=== PATIENT | female | born 1935 | race Caucasian/White ===

== ENCOUNTER → 2017-05-06 10:44 | Outpatient (CLI) | payer MEDICARE, OTHER, SELFPAY ==
[2017-05-06 11:39] LABS: INR 3.36 (0.9-1.1); Prothrombin Time 36.7 seconds (9.4-11.8)
[2017-05-06 13:08] LABS: Anion Gap 15.6 mEq/L (5-15); Blood Urea Nitrogen 22 mg/dL (7-18); Carbon Dioxide 19 mmol/L (21.0-32.0); Chloride 110 mmol/L (98-107); Creatinine,Serum 0.88 mg/dL (0.55-1.02); Estimated Glomerular Filt Rate 62 ml/min (>60); GFR (African American) 75 ML/MIN (>60); Glucose 84 mg/dL (74-106); Potassium 4.6 mmoL/L (3.5-5.1); Sodium 140 mmol/L (136-145)
== END ==
PROVIDERS: PCP Family Medicine; Visit Provider Family Medicine
DX: Z79.01 Long term (current) use of anticoagulants (principal); E87.6 Hypokalemia; Z51.81 Encounter for therapeutic drug level monitoring
CPT/HCPCS: 36415; 80048; 85610

== ENCOUNTER 2017-05-11 01:20 | Emergency (ER) | payer MEDICARE, OTHER, SELFPAY ==
[2017-05-11 01:27] VITALS: BP 145/69; PULSE 68; RESP 16; TEMP 36.4; O2SAT 100; BMI 22.3
--- NOTE | 2017-05-11 01:51 | CT_ITS ---
CT head/brain wo con HISTORY: ITS.REASON: DIZZINESS ORDERING PHYSICIAN: Ronan Alvarado MD PATIENT AGE: 81 years COMPARISON: None TECHNIQUE: Axial images obtained without contrast. Brain and bone windows reviewed. FINDINGS: No midline shift, mass effect, intracranial hemorrhage, hydrocephalus, or extra-axial fluid collection is evident. There is generalized atrophy with chronic microangiopathic changes There is a well-circumscribed macrolobulated or lucent lesion in the left vertex of the skull measuring 2 cm similar to the previous exam unchanged dating back to 09/14/2009 consistent with a benign lesion. No mastoid effusion. No sinus air-fluid levels.. IMPRESSION: 1. No acute finding. 2. Atrophy with chronic ischemic change.
[2017-05-11 02:09] LABS: Basophils # 0.1 K/mm3 (0-0.2); Basophils % 0.8 % (0.1-2.0); Eosinophils # 0.2 K/mm3 (0.0-0.4); Eosinophils % 2.9 % (0.1-12.0); Hematocrit 36.3 % (37.0-47.0); Hemoglobin 11.4 g/dL (12.2-16.2); Lymphocytes % 27.2 K/mm3 (10-50); Mean Corpuscular HGB Conc 31.4 g/dL (31.8-35.4); Mean Corpuscular Hemoglobin 29.2 pg (27.0-31.2); Mean Corpuscular Volume 92.8 fl (81-99); Mean Platelet Volume 7.7 fl (7.4-10.4); Monocytes # 0.6 K/mm3 (0.1-1.0); Monocytes % 8.1 % (1.7-9.3); Neutrophils # 4.5 K/mm3 (1.8-7.8); Platelet Count 229 K/mm3 (142-424); Red Blood Count 3.91 M/mm3 (4.20-5.40); Red Cell Distribution Width 13.7 % (11.5-17.5); White Blood Count 7.4 K/mm3 (4.8-10.8)
[2017-05-11 02:28] LABS: Alanine Aminotransferase 15 U/L (12-78); Albumin/Globulin Ratio 0.9 (1.1-1.8); Alkaline Phosphatase 68 U/L (46-116); Anion Gap 10.9 mEq/L (5-15); Aspartate Amino Transferase 14 U/L (15-37); Bilirubin,Total 0.6 mg/dL (0.2-1.0); Blood Urea Nitrogen 17 mg/dL (7-18); Calcium 8.5 mg/dL (8.5-10.1); Carbon Dioxide 20 mmol/L (21.0-32.0); Chloride 115 mmol/L (98-107); Creatinine Clearance Estimated 41 mL/min (0-300); Creatinine,Serum 0.91 mg/dL (0.55-1.02); Estimated Glomerular Filt Rate 59 ml/min (>60); GFR (African American) 72 ML/MIN (>60); Globulin 3.4 gm/dl (1.3-3.2); Glucose 92 mg/dL (74-106); Potassium 3.9 mmoL/L (3.5-5.1); Sodium 142 mmol/L (136-145); Total Protein,Serum 6.4 gm/dL (6.4-8.2)
[2017-05-11 02:57] LABS: Microscopic, Urine URINE MICROSCOPIC (MICROSCOPIC)
[2017-05-11 02:58] LABS: Appearance,Urine CLEAR (Clear); Bilirubin,Urine Negative (Negative); Blood, Urine Negative (Negative); Color,Urine YELLOW (Yellow); Glucose,Urine (UA) Negative (Negative); Ketones,Urine Negative (Negative); Leukocyte Esterase,Urine TRACE (Negative); Nitrate,Urine Negative (Negative); Protein,Urine Negative (Negative); Urobilinogen,Urine 0.2 EU/dl (0.2)
[2017-05-11 03:00] LABS: Activated Partial Thrombo Time 41.1 seconds (23.6-34.0)
--- NOTE | 2017-05-11 03:00 | PC.NURSE ---
RN ADVISED OF PT, PTT INR CRITICAL RESULTS.
[2017-05-11 03:01] LABS: INR 4.53 (0.9-1.1); Prothrombin Time 49.7 seconds (9.4-11.8)
--- NOTE | 2017-05-11 03:03 | PC.NURSE ---
NOTIFIED OF PT/INR RESULTS
[2017-05-11 03:11] LABS: Creatine Kinase 38 U/L (26-192); Troponin I 0.05 ng/ml (0.00-0.06)
[2017-05-11 03:21] LABS: CKMB Relative Index 1.3 U/L (0-4.0); Creatine Kinase MB < 0.5 mg/ml (0.0-3.6)
--- NOTE | 2017-05-11 04:01 | [facility].EDDIZZ ---
ED Disposition Clinical Impression: Dizziness, nonspecific, Prolonged pt (prothrombin time) Disposition: Home, Self-Care Condition on Discharge: Good Instructions: Dizziness, Nonvertigo Additional Instructions: hold coumadin today and keep appt friday with dr newell Referrals: Vladislav Newlel MD [Primary Care Provider] - - Critical Care Critical Care Time: No Attestation: On 05/11/17, the high probability of a clinically significant, sudden or life threatening deterioration of the following system(s) required my full and direct attention, intervention and personal management. The time I documented below is in addition to time spent performing reported procedures but includes the following listed in this critical care notation. Medical Decision Making - Medical Records Medical records reviewed: Yes: I reviewed the patient's medical records. Vital Signs: 05/11/17 01:27 Temperature 97.6 F Temperature Source Oral Pulse Rate [Right Radial] 68 Respiratory Rate 16 Blood Pressure [Right Arm] 145/69 Blood Pressure Mean [Right Arm] 94 Blood Pressure Source [Right Arm] Automatic Cuff Blood Pressure Position [Right Arm] Sitting 02 Sat by Pulse Oximetry 100 Oxygen Delivery Method Room Air - Lab Data Lab results reviewed: Yes: I reviewed the patient's lab results. Lab Results 05/11/17 01:55: WBC 7.4, RBC 3.91 L, Hgb 11.4 L, Hct 36.3 L, MCV 92.8, MCH 29.2, MCHC 31.4 L, RDW 13.7, Plt Count 229, MPV 7.7, Neut % (Auto) 61.0, Lymph % (Auto) 27.2, [place] % (Auto) 8.1, Eos % (Auto) 2.9, Baso % (Auto) 0.8, Neut # (Auto) 4.5, Lymph # (Auto) 2.0, [place] # (Auto) 0.6, Eos # (Auto) 0.2, Baso # (Auto) 0.1 05/11/17 01:55: Sodium 142, Potassium 3.9, Chloride 115 H, Carbon Dioxide 20 L, Anion Gap 10.9, BUN 17, Creatinine 0.91, Estimated Creat Clear 41, Estimated GFR 59, Est GFR ( Amer) 72, Glucose 92, Calcium 8.5, Total Bilirubin 0.6, AST 14 L, ALT 15, Alkaline Phosphatase 68, Total Protein 6.4, Albumin 3.0 L, Globulin 3.4 H, Albumin/Globulin Ratio 0.9 L 05/11/17 01:55: Total Creatine Kinase 38, CK-MB (CK-2) < 0.5, CK-MB (CK-2) Rel Index 1.3, Troponin I 0.05 05/11/17 01:55: PT 49.7 H, INR 4.53 H, APTT 41.1 H 05/11/17 02:55: Urine Color Yellow, Urine Appearance Clear, Urine pH 7.0, Ur Specific [place] 1.010, Urine Protein Negative, Urine Glucose (UA) Negative, Urine Ketones Negative, Urine Blood Negative, Urine Nitrate Negative, Urine Bilirubin Negative, Urine Urobilinogen 0.2, Ur Leukocyte Esterase Trace, Urine WBC 3-5, Ur Squamous Epith Cells 3-5 Result diagrams: 05/11/17 01:55 05/11/17 01:55 Orders (Tests/Meds): ORDERS Category Date Time Status CT head/brain wo con Stat Cat Scan 05/11/17 01:51 Taken - CT Data CT Scan: Head Time Received: 04:[address] Reviewed: Yes: I have viewed the radiologist's interpretation Preliminary Findings: Normal/NAD - ECG Data Tracing #1 I reviewed this ECG and interpreted as documented below: Ischemic changes: non-specific ST-T wave changes - Francis Inquiry Pt receiving controlled substance: No Dizzy HPI - General Chief Complaint: Dizziness Stated Complaint: Dizziness;Light Headed Time Seen by Provider: 05/11/17 04:01 Mode of Arrival: Wheelchair Source of Information: Patient, Significant Other, Medical Record Limitations: No Limitations Description of Symptoms (Recalled from ER Triage Doc. by RN): Pt reports she stood up to go to the bathroom and got dizzy. Pt currently report burning eyes and pressure. - History of Present Illness HPI Narrative: pt with episode of dizzyness this am as she went to bathroom with no chest pain or syncope and has had episodes in past - better now MD complaint: dizziness Onset (ago): hour(s) Timing: sudden onset, now resolved Description: room spinning History of similar episodes: Yes History of trauma: No Severity: moderate Exacerbating factors: position - Related Data Home Medications Medication Instructions Re
--- NOTE | 2017-05-11 04:16 | ED_ITS ---
ED Disposition Clinical Impression: Dizziness, nonspecific, Prolonged pt (prothrombin time) Disposition: Home, Self-Care Condition on Discharge: Good Instructions: Dizziness, Nonvertigo Additional Instructions: hold coumadin today and keep appt friday with dr newell Referrals: Vladislav Newell MD [Primary Care Provider] - - Critical Care Critical Care Time: No Attestation: On 05/11/17, the high probability of a clinically significant, sudden or life threatening deterioration of the following system(s) required my full and direct attention, intervention and personal management. The time I documented below is in addition to time spent performing reported procedures but includes the following listed in this critical care notation. Medical Decision Making - Medical Records Medical records reviewed: Yes: I reviewed the patient's medical records. Vital Signs: 05/11/17 01:27 Temperature 97.6 F Temperature Source Oral Pulse Rate [Right Radial] 68 Respiratory Rate 16 Blood Pressure [Right Arm] 145/69 Blood Pressure Mean [Right Arm] 94 Blood Pressure Source [Right Arm] Automatic Cuff Blood Pressure Position [Right Arm] Sitting 02 Sat by Pulse Oximetry 100 Oxygen Delivery Method Room Air - Lab Data Lab results reviewed: Yes: I reviewed the patient's lab results. Lab Results 05/11/17 01:55: WBC 7.4, RBC 3.91 L, Hgb 11.4 L, Hct 36.3 L, MCV 92.8, MCH 29.2 , MCHC 31.4 L, RDW 13.7, Plt Count 229, MPV 7.7, Neut % (Auto) 61.0, Lymph % ( Auto) 27.2, [place] % (Auto) 8.1, Eos % (Auto) 2.9, Baso % (Auto) 0.8, Neut # (Auto ) 4.5, Lymph # (Auto) 2.0, [place] # (Auto) 0.6, Eos # (Auto) 0.2, Baso # (Auto) 0.1 05/11/17 01:55: Sodium 142, Potassium 3.9, Chloride 115 H, Carbon Dioxide 20 L, Anion Gap 10.9, BUN 17, Creatinine 0.91, Estimated Creat Clear 41, Estimated GFR 59, Est GFR ( Amer) 72, Glucose 92, Calcium 8.5, Total Bilirubin 0.6 , AST 14 L, ALT 15, Alkaline Phosphatase 68, Total Protein 6.4, Albumin 3.0 L, Globulin 3.4 H, Albumin/Globulin Ratio 0.9 L 05/11/17 01:55: Total Creatine Kinase 38, CK-MB (CK-2) < 0.5, CK-MB (CK-2) Rel Index 1.3, Troponin I 0.05 05/11/17 01:55: PT 49.7 H, INR 4.53 H, APTT 41.1 H 05/11/17 02:55: Urine Color Yellow, Urine Appearance Clear, Urine pH 7.0, Ur Specific [place] 1.010, Urine Protein Negative, Urine Glucose (UA) Negative, Urine Ketones Negative, Urine Blood Negative, Urine Nitrate Negative, Urine Bilirubin Negative, Urine Urobilinogen 0.2, Ur Leukocyte Esterase Trace, Urine WBC 3-5, Ur Squamous Epith Cells 3-5 Result diagrams: 05/11/17 01:55 05/11/17 01:55 Orders (Tests/Meds): ORDERS Category Date Time Status CT head/brain wo con Stat Cat Scan 05/11/17 01:51 Taken - CT Data CT Scan: Head Time Received: 04:[address] Reviewed: Yes: I have viewed the radiologist's interpretation Preliminary Findings: Normal/NAD - ECG Data Tracing #1 I reviewed this ECG and interpreted as documented below: Ischemic changes: non-specific ST-T wave changes - Francis Inquiry Pt receiving controlled substance: No Dizzy HPI - General Chief Complaint: Dizziness Stated Complaint: Dizziness;Light Headed Time Seen by Provider: 05/11/17 04:01 Mode of Arrival: Wheelchair Source of Information: Patient, Significant Other, Medical Record Limitations: No Limitations Description of Symptoms (Recalled from ER Triage Doc. by RN): Pt reports she stood up to go to the
== END 2017-05-11 04:33 | disposition home or self-care (01) ==
PROVIDERS: Emergency Provider Emergency Medicine; PCP Family Medicine
DX: R42 Dizziness and giddiness (principal); R79.1 Abnormal coagulation profile; Z79.01 Long term (current) use of anticoagulants; Z79.899 Other long term (current) drug therapy
CPT/HCPCS: 70450; 80053; 81001; 82550; 82553; 84484; 85025; 85610; 85730; 93005; 93041; 99282

== ENCOUNTER → 2017-08-05 10:36 | Outpatient (CLI) | payer MEDICARE, OTHER, SELFPAY ==
--- NOTE | 2017-08-05 11:07 | CT_ITS ---
CT abdomen pelvis w con CLINICAL INDICATION: ITS.REASON: EPIGASTRIC PAIN SWELLING,PELVIC SWELLING MASS ORDERING PHYSICIAN: Vladislav Moise MD PATIENT AGE: 81 years COMPARISON: 02/15/2017 TECHNIQUE: Axial images obtained with sagittal and coronal reformats. All CT scans at the facility use one or more dose reduction, viz: automated exposure control; ma/kV adjustment per patient size (including targeted exams where dose is matched to indication; i.e. head); or iterative reconstruction technique. PROCEDURE: Oral Contrast: Redicat IV Contrast: 50 mL's of Isovue-370 performed in conjunction with the chest CT. FINDINGS: There is mild dilatation of the intrahepatic biliary radicles. No radio opaque gallstones are evident. A faint isodense is present involving the right hepatic lobe medially at 4 mm unchanged. Spleen and adrenal glands are unremarkable. No pancreatic mass or pancreatitis evident.. There is moderate severe right hydronephrosis with dilatation of the right renal pelvis. The right ureter is not dilated. This is consistent with UPJ obstruction. The left kidney has an unremarkable appearance. There is a moderate amount retained colonic feces. Post hysterectomy changes are present. No evidence of diverticulitis or appendicitis. There is diverticulosis of the sigmoid and descending colon. No acute bony anomalies. There are degenerative changes in the lumbar spine. IMPRESSION: 1. 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 No obstructing stones are evident. No obvious renal or proximal ureteral mass. 2. Mild dilatation of the intrahepatic biliary radicles. Questionable clinical significance 3. Constipation with diverticulosis
--- NOTE | 2017-08-05 11:07 | CT_ITS ---
CT chest wo/w con HISTORY: Atypical chest pain, follow-up pulmonary nodule ITS.REASON: ATYPICAL CHEST PAIN LUNG NODULE ORDERING PHYSICIAN: Vladislav Moise MD PATIENT AGE: 81 years Technique: Axial images obtained without and with contrast.. Sagittal and coronal reformatted images are also generated and reviewed. All CT scans at the facility use one or more dose reduction, viz: automated exposure control; ma/kV adjustment per patient size (including targeted exams where dose is matched to indication; i.e. head); or iterative reconstruction technique. CONTRAST: 75ml Isovue 370 I.V. COMPARISON: 07/26/2017 FINDINGS: Left lobe of the thyroid gland is slightly enlarged with isodensity pole suggesting a 1 cm nodule. No evidence of aortic aneurysm or dissection. Atherosclerotic calcification involves coronary arteries and the aorta. No central pulmonary embolus evident. No mediastinal or hilar mass. Very small amount contrast present in the distal esophagus and may be related to reflux. A 4 mm nodules present in the central aspect of the right upper lobe unchanged. A well-circumscribed 9 mm subpleural nodular density is once again noted in the right lung base medially. This does not demonstrate any significant enhancement and is unchanged from 07/26/2017. No new nodules are evident. No lobar consolidation or collapse. No acute bony anomalies IMPRESSION: 1. Overall stable CT appearance of the chest compared to 07/26/2017 with no acute finding evident. 2. No evidence of aortic aneurysm or dissection or central pulmonary embolus. 3. No change 4 mm right upper lobe and 9 mm right lower lobe nodule.
== END ==
PROVIDERS: PCP Family Medicine; Visit Provider Family Medicine
DX: R91.1 Solitary pulmonary nodule (principal); R07.89 Other chest pain; R10.13 Epigastric pain; R19.06 Epigastric swelling, mass or lump
CPT/HCPCS: 71270; 74177; Q9967

== ENCOUNTER → 2017-09-29 14:05 | Outpatient (CLI) | payer MEDICARE, OTHER, SELFPAY ==
--- NOTE | 2017-09-29 14:19 | XR_ITS ---
EXAM: XR thoracic spine 3V HISTORY: ITS.REASON: THORACIC BACK PAIN Comparison: 09/25/2017 FINDINGS: Normal alignment. There is mild lower thoracic curvature convex left. No acute fracture or dislocation is evident. There are mild degenerative changes in the midthoracic spine with minimal intraosseous osteophytes. No lytic or blastic change. IMPRESSION: No acute finding. Mild degenerative changes of the midthoracic spine with mild thoracic scoliosis convex left
== END ==
PROVIDERS: PCP Nurse Practitioner Family; Visit Provider Nurse Practitioner Family
DX: M54.6 Pain in thoracic spine (principal)
CPT/HCPCS: 72072

== ENCOUNTER 2017-10-14 17:14 | Observation (INO) ==
[2017-10-14 17:32] LABS: Basophils % 0.4 % (0.1-2.0); Eosinophils # 0.1 K/mm3 (0.0-0.4); Eosinophils % 0.9 % (0.1-12.0); Hematocrit 39.1 % (37.0-47.0); Hemoglobin 12.1 g/dL (12.2-16.2); Lymphocytes # 1.6 K/mm3 (0.7-4.5); Lymphocytes % 13.7 K/mm3 (10-50); Mean Corpuscular HGB Conc 30.9 g/dL (31.8-35.4); Mean Corpuscular Hemoglobin 27.3 pg (27.0-31.2); Mean Corpuscular Volume 88.3 fl (81-99); Mean Platelet Volume 8.7 fl (7.4-10.4); Monocytes # 0.7 K/mm3 (0.1-1.0); Monocytes % 5.6 % (1.7-9.3); Neutrophils # 9.4 K/mm3 (1.8-7.8); Neutrophils % 79.4 % (37.0-80.0); Platelet Count 418 K/mm3 (142-424); Red Blood Count 4.43 M/mm3 (4.20-5.40); Red Cell Distribution Width 14.9 % (11.5-17.5); White Blood Count 11.8 K/mm3 (4.8-10.8)
[2017-10-14 17:42] LABS: Albumin/Globulin Ratio 0.8 (1.1-1.8); Anion Gap 20.3 mEq/L (5-15); Bilirubin,Total 0.5 mg/dL (0.2-1.0); Calcium 8.6 mg/dL (8.5-10.1); Globulin 3.7 gm/dl (1.3-3.2); Potassium 4.3 mmoL/L (3.5-5.1); Total Protein,Serum 6.7 gm/dL (6.4-8.2)
--- NOTE | 2017-10-14 17:46 | Emergency Department Note ---
ED Disposition Clinical Impression: Dehydration Acute renal failure Qualifiers: Acute renal failure type: unspecified Qualified Code(s): N17.9 - Acute kidney failure, unspecified Abdominal pain Qualifiers: Abdominal location: unspecified location Qualified Code(s): R10.9 - Unspecified abdominal pain Nausea & vomiting Qualifiers: Vomiting type: unspecified Vomiting Intractability: unspecified Qualified Code( s): R11.2 - Nausea with vomiting, unspecified Disposition: Admitted As Inpatient Condition on Discharge: Good Referrals: Mark Anthony Sotelo MD [Primary Care Provider] - Time of Disposition: 20:19 - Critical Care Critical Care Time: No Attestation: On 10/14/17, the high probability of a clinically significant, sudden or life threatening deterioration of the following system(s) required my full and direct attention, intervention and personal management. The time I documented below is in addition to time spent performing reported procedures but includes the following listed in this critical care notation. Medical Decision Making - Medical Records Medical records reviewed: Yes: I reviewed the patient's medical records. - Francis Inquiry Pt receiving controlled substance: No Vital Signs: 10/14/17 17:15 10/14/17 18:15 Temperature 97.7 F 98.2 F Temperature Source Oral Oral Pulse Rate [Right Radial] 104 H 104 H Respiratory Rate 16 18 Blood Pressure [Right Arm] 107/39 151/87 Blood Pressure Mean [Right Arm] 61 108 Blood Pressure Source [Right Arm] Automatic Cuff Automatic Cuff Blood Pressure Position [Right Arm] Supine Supine 02 Sat by Pulse Oximetry 98 98 Oxygen Delivery Method Room Air - Lab Data Lab results reviewed: Yes: I reviewed the patient's lab results. Lab Results 10/14/17 17:25: WBC 11.8 H, RBC 4.43, Hgb 12.1 L, Hct 39.1, MCV 88.3, MCH 27.3, MCHC 30.9 L, RDW 14.9, Plt Count 418, MPV 8.7, Neut % (Auto) 79.4, Lymph % (Auto ) 13.7, [place] % (Auto) 5.6, Eos % (Auto) 0.9, Baso % (Auto) 0.4, Neut # (Auto) 9.4 H, Lymph # (Auto) 1.6, [place] # (Auto) 0.7, Eos # (Auto) 0.1, Baso # (Auto) 0.0 10/14/17 17:25: Sodium 136, Potassium 4.3, Chloride 104, Carbon Dioxide 16 L, Anion Gap 20.3 H, BUN 53 H, Creatinine 1.09 H, Estimated Creat Clear 32, Estimated GFR 48 L, Est GFR ( Amer) 58 L, Glucose 115 H, Calcium 8.6, Total Bilirubin 0.5, AST 11 L, ALT 11 L, Alkaline Phosphatase 60, Total Protein 6.7, Albumin 3.0 L, Globulin 3.7 H, Albumin/Globulin Ratio 0.8 L, Amylase 47, Lipase 308 Result diagrams: 10/14/17 17:25 10/14/17 17:25 Orders (Tests/Meds): ED MEDICATIONS Discontinued Medications Generic Name Dose Route Start Last Admin Trade Name Freq PRN Reason Stop Dose Admin Iopamidol 75 ml 10/14/17 19:18 10/14/17 19:19 [id number]; 75ml Vial IV 10/14/17 19:19 75 ml ONCE ONE Administration Sodium Chloride 10 ml 10/14/17 19:18 10/14/17 19:19 Rad-Saline Flush 10ml Syringe IV 10/14/17 19:19 10 ml ONCE ONE Administration ORDERS Category Date Time Status CT abdomen pelvis w con Stat Cat Scan 10/14/17 17:48 Taken - Physician Consults Physician Consulted: shaw Alvarado for Dr Moies Time: 20:15 Reason -: Admission, Pt condition Comment/Response: Advised of patient presentation findings, agreeable with admission. CT scan of the abdomen and pelvis is pending. Abdominal Pain HPI - General Chief Complaint: Abdominal Pain Stated Complaint: abd pain Time Seen by Provider: 10/14/17 17:45 Mode of Arrival: EMS Limitations: Physical Limitations Description of Symptoms (Recalled from ER Triage Doc. by RN): Ongoing abd pain for weeks and n/v. weakness. - History of Present Illness HPI narrative: Patient is a 82-year-old male patient brought into the emergency room by family with abdominal pain, nausea vomiting, for the past 2-3 weeks. Patient is a very vague historian, being known with diagnosis of dementia. Family member (daughter) at bedside. MD complaint: abdominal pain Onset (ago): week(s) (2) Consistency: intermittent Location: diffuse Severity: mild Severity scale (1-10): 2 Quality: aching Radiation: none Migration to: no migration Relieving factors: nothing Exacerbating factors: nothing Associated symptoms: nausea, vomiting - Related Data Home Medications Medication Instructions Recorded Confirmed No Known Home Medications 09/18/17 10/14/17 Allergies Allergy/AdvReac Type Severity Reaction Status Date / Time pravastatin [PRAVASTATIN] Allergy Intermediate I-RASH Verified 10/14/17 17:20 [facility] History I have reviewed the patient's past medical history: Yes Medical History: Denies:: Cancer, Diabetes Mellitus Type 1, Diabetes Mellitus Type 2, Internal Pacemaker, MRSA Other Surgeries: No: Pacemaker Amputation: No Fractures: No - Social History Smoking Status: Former smoker Tobacco Type: cigarettes Alcohol Intake: never Alcohol Intake Frequency:: holidays/special occasions only - Psychiatric History Expresses thoughts of harming self/others: None Suicide Plan Description: No Plan ROS Obtained: Yes All systems reviewed & no additional complaints, Yes Systems reviewed as appropriate & no additional complaints - Gastrointestinal Gastrointestingal: Reports: system reviewed and no additional complaints, except as docu, as per HPI, nausea, vomiting Physical Exam - General General appearance: alert, in distress - Head Head exam: atraumatic, normocephalic, normal inspection - Neck Neck exam: Present: normal inspection, full ROM, trachea midline. Absent: meningismus, lymphadenopathy - Chest Chest inspection: Present: normal inspection, symmetric chest wall rise. Absent : tenderness - Respiratory Respiratory exam: Present: normal lung sounds bilaterally. Absent: respiratory distress - Cardiovascular Cardiovascular exam: Present: regular rate, normal rhythm. Absent: JVD - Abdominal Exam Abdominal exam: Present: soft, normal bowel sounds. Absent: distention, tenderness, guarding - Extremities Exam Extremities exam: Present: normal inspection, full ROM, normal capillary refill. Absent: calf tenderness - Back Exam Back exam: Present: normal inspection. Absent: tenderness - Neurological Exam Neurological exam: Present: alert, CN II-XII intact, other (Confused, demented) - Psychiatric Psychiatric exam: Present: depressed, flat affect - Skin Skin exam: Present: warm, dry, intact, normal color
[2017-10-15 01:03] LABS: ABG Base Excess -15.6 mmol/L (-2.4-2.3); ABG HCO3 9.5 mmhg (22.0-26.0); ABG Oxygen Saturation 98 % (90-100); ABG PH 7.38 mmol/L (7.35-7.45)
[2017-10-15 01:05] LABS: Allen's Test Non Applicable; Oxygen 1.5 LPM %
[2017-10-15 01:06] LABS: ABG PCO2 16.2 mmhg (35.0-45.0)
[2017-10-15 01:30] LABS: Basophils % 0.2 % (0.1-2.0); Eosinophils # 0.1 K/mm3 (0.0-0.4); Eosinophils % 0.3 % (0.1-12.0); Hematocrit 30.6 % (37.0-47.0); Lymphocytes # 0.6 K/mm3 (0.7-4.5); Lymphocytes % 4.2 K/mm3 (10-50); Mean Corpuscular Hemoglobin 27.5 pg (27.0-31.2); Mean Corpuscular Volume 91.8 fl (81-99); Mean Platelet Volume 9.2 fl (7.4-10.4); Monocytes # 0.5 K/mm3 (0.1-1.0); Monocytes % 3.7 % (1.7-9.3); Neutrophils # 13.5 K/mm3 (1.8-7.8); Neutrophils % 91.5 % (37.0-80.0); Platelet Count 335 K/mm3 (142-424); Red Blood Count 3.33 M/mm3 (4.20-5.40); Red Cell Distribution Width 15.1 % (11.5-17.5); White Blood Count 14.7 K/mm3 (4.8-10.8)
[2017-10-15 01:33] LABS: Microscopic, Urine URINE MICROSCOPIC (MICROSCOPIC)
[2017-10-15 01:36] LABS: C-Reactive Protein 1.2 mg/L (0.0-0.9); Hemoglobin 9.2 g/dL (12.2-16.2)
[2017-10-15 01:46] LABS: Calcium 7.6 mg/dL (8.5-10.1)
[2017-10-15 01:46] LABS: Appearance,Urine CLEAR (Clear); Bilirubin,Urine Negative (Negative); Blood, Urine 2+ (Negative); Color,Urine YELLOW (Yellow); Glucose,Urine (UA) Negative (Negative); Ketones,Urine TRACE (Negative); Leukocyte Esterase,Urine Negative (Negative); Protein,Urine Negative (Negative); Specific Gravity, Urine <= 1.005 (1.005-1.030); Urobilinogen,Urine 0.2 EU/dl (0.2)
[2017-10-15 01:54] LABS: Bacteria,Urine Trace /lpf; WBC,Urine Occasional #/hpf (0-3)
[2017-10-15 02:15] LABS: Erythrocyte Sedimentation Rate 16 mm/hr (0-30)
[2017-10-15 02:48] LABS: Lymphocytes % 5 % (10-50); Neutrophils % 95 % (42-76); Total Cells Counted 100
[2017-10-15 02:49] LABS: Anisocytosis 1+; Ovalocytes 1+
--- NOTE | 2017-10-15 03:00 | H&P/Discharge Summary ---
General - General Admission date:: 10/14/17 Discharge date: 10/15/17 *Admission Date: 10/14/17 *Chief complaint: abd pain *History of present illness: this wf was seen in the ed last pm with hx of abd pain and vomiting with no melena and no fever - this had been going on for days - pt is poor historian but denied chest pain - her labs showed elevated bun/cr and ct showed no specific abn - except some duodenal fullness which was nonspecific and she was admitted npo and ivf and protonix - [facility] History I have reviewed the patient's past medical history: Yes Medical History: Denies:: Cancer, Diabetes Mellitus Type 1, Diabetes Mellitus Type 2, Internal Pacemaker, MRSA Other Surgeries: No: Pacemaker Amputation: No Fractures: No - *Social History Smoking Status: Former smoker Tobacco Type: cigarettes Alcohol Intake: never Alcohol Intake Frequency:: holidays/special occasions only Occupational Status: retired Housing: house - Psychiatric History Expresses thoughts of harming self/others: None Suicide Plan Description: No Plan *Family Hx:: Unable to obtain Review of Systems - Review of Systems Review of systems:: pertinent systems reviewed and negative unless documented below - Constitutional Denies fever(s) - Eyes Denies change in vision - ENT Denies sore throat - *Cardiovascular Denies chest pain with activity - *Respiratory Denies cough - *Gastrointestinal Reports abdominal pain, Reports nausea, Reports vomiting, Denies bright, red blood in stools, Denies black, tarry stools - *Genitourinary Denies blood in urine - *Musculoskeletal Denies joint pain, Denies neck pain - Integumentary/Breasts Denies rash - *Neurologic Denies confusion, Denies seizure-like activity - Psychiatric Reports other (some hx of dec memory) Exam Vital signs and Labs for Last 24 Hours: Temp Pulse Resp BP Pulse Ox 95.9 F L 101 H 20 110/42 93 L 10/15/17 02:10 10/15/17 02:10 10/15/17 02:10 10/15/17 02:10 10/15/17 02:10 Laboratory Results - last 24 hr 10/14/17 17:25: WBC 11.8 H, RBC 4.43, Hgb 12.1 L, Hct 39.1, MCV 88.3, MCH 27.3, MCHC 30.9 L, RDW 14.9, Plt Count 418, MPV 8.7, Neut % (Auto) 79.4, Lymph % (Auto ) 13.7, [place] % (Auto) 5.6, Eos % (Auto) 0.9, Baso % (Auto) 0.4, Neut # (Auto) 9.4 H, Lymph # (Auto) 1.6, [place] # (Auto) 0.7, Eos # (Auto) 0.1, Baso # (Auto) 0.0 10/14/17 17:25: Sodium 136, Potassium 4.3, Chloride 104, Carbon Dioxide 16 L, Anion Gap 20.3 H, BUN 53 H, Creatinine 1.09 H, Estimated Creat Clear 32, Estimated GFR 48 L, Est GFR ( Amer) 58 L, Glucose 115 H, Calcium 8.6, Total Bilirubin 0.5, AST 11 L, ALT 11 L, Alkaline Phosphatase 60, Total Protein 6.7, Albumin 3.0 L, Globulin 3.7 H, Albumin/Globulin Ratio 0.8 L, Amylase 47, Lipase 308 10/15/17 00:48: Urine Color Yellow, Urine Appearance Clear, Urine pH 7.0, Ur Specific [place] <= 1.005, Urine Protein Negative, Urine Glucose (UA) Negative, Urine Ketones Trace, Urine Blood 2+, Urine Nitrate Negative, Urine Bilirubin Negative, Urine Urobilinogen 0.2, Ur Leukocyte Esterase Negative, Urine RBC 5-10 , Urine WBC Occasional, Urine Bacteria Trace, Stool Occult Blood Positive A 10/15/17 00:58: POC Glucose 166 H 10/15/17 01:00: WBC 14.7 H, RBC 3.33 L, Hgb 9.2 L D, Hct 30.6 L, MCV 91.8, MCH 27.5, MCHC 30.0 L, RDW 15.1, Plt Count 335, MPV 9.2, Neut % (Auto) 91.5 H, Lymph % (Auto) 4.2 L, [place] % (Auto) 3.7, Eos % (Auto) 0.3, Baso % (Auto) 0.2, Neut # (Auto) 13.5 H, Lymph # (Auto) 0.6 L, [place] # (Auto) 0.5, Eos # (Auto) 0.1 , Baso # (Auto) 0.0, Total Counted 100, Neutrophils % (Manual) 95 H, Lymphocytes % (Manual) 5 L, Platelet Estimate Normal, RBC Morphology Not Reportable, Anisocytosis 1+, Ovalocytes 1+, ESR 16 10/15/17 01:00: Sodium 140, Potassium 4.0, Chloride 110 H, Carbon Dioxide 14 L, Anion Gap 20.0 H, BUN 57 H, Creatinine 1.12 H, Estimated Creat Clear 29, Estimated GFR 47 L, Est GFR ( Amer) 56 L, Glucose 182 H D, Calcium 7.6 L D, C-Reactive Protein 1.2 H 10/15/17 01:00: Lactic Acid 4.6 H 10/15/17 01:00: Lipase 166 10/15/17 12:50: Specimen Source Left brachial, O2 % 1.5 lpm, ABG pH 7.38, ABG pCO2 16.2 L, ABG pO2 135.0 H, ABG HCO3 9.5 L, ABG Total CO2 10.0 L, ABG O2 Saturation 98, ABG Base Excess -15.6 L, Edgar Test Non applicable I & O for Last 24 hours: Intake & Output 10/12/17 10/13/17 10/14/17 10/15/17 11:59 11:59 11:59 11:59 Intake Total 1999 Balance 1999 Weight 105 lb 4 oz - Constitutional no acute distress, thin - *Routine HEENT Exam Head: Present: normocephalic Eye: Present: EOMI, PERRL. Absent: scleral injection ENT: Present: mucous membranes dry - *Routine Neck Exam Absent: JVD - *Routine Respiratory Exam Present: decreased breath sounds. Absent: respiratory distress - *Routine Cardiovascular Exam Present: RRR, murmur, S4 - *Routine Abdominal Exam Present: soft, tenderness. Absent: distended, rebound, guarding, organomegaly Comments: thin and could feel aorta well but no gross bruit - *Routine Rectal Exam Patient deferred: digital exam Visual: Present: bloody stool, heme (+) stool - *Routine Extremities Exam Absent: calf tenderness - *Routine Skin Exam Present: dry - *Routine Neurological Exam Present: alert, CN II-XII intact ox 2 no focal - Routine Psychiatric Exam Present: unable to assess Hospital Course Hospital Course: asked to see pt and had hypotensive episode with morronish stool , pos hemocult with inc anion gap and elevated lactic acid - exam most consistent with prob ischemic bowel - hgb had dec from 12 to 9 - called [facility] and spoke to surg - dr gutierrez and accepted to ed for eval Results Labs on day of discharge: Labs from last 24 hours 10/15/17 10/15/17 10/15/17 12:50 01:00 01:00 WBC RBC Hgb Hct MCV MCH MCHC RDW Plt Count MPV Neut % (Auto) Lymph % (Auto) [place] % (Auto) Eos % (Auto) Baso % (Auto) Neut # (Auto) Lymph # (Auto) [place] # (Auto) Eos # (Auto) Baso # (Auto) Total Counted Neutrophils % (Manual) Lymphocytes % (Manual) Platelet Estimate RBC Morphology Anisocytosis Ovalocytes ESR Specimen Source Left brachial O2 % 1.5 lpm ABG pH 7.38 ABG pCO2 16.2 L ABG pO2 135.0 H ABG HCO3 9.5 L ABG Total CO2 10.0 L ABG O2 Saturation 98 ABG Base Excess -15.6 L Edgar Test Non applicable Sodium Potassium Chloride Carbon Dioxide Anion Gap BUN Creatinine Estimated Creat Clear Estimated GFR Est GFR ( Amer) Glucose POC Glucose Lactic Acid 4.6 H Calcium Total Bilirubin AST ALT Alkaline Phosphatase C-Reactive Protein Total Protein Albumin Globulin Albumin/Globulin Ratio Amylase Lipase 166 Urine Color Urine Appearance Urine pH Ur Specific [place] Urine Protein Urine Glucose (UA) Urine Ketones Urine Blood Urine Nitrate Urine Bilirubin Urine Urobilinogen Ur Leukocyte Esterase Urine RBC Urine WBC Urine Bacteria Stool Occult Blood 10/15/17 10/15/17 10/15/17 01:00 01:00 00:58 WBC 14.7 H RBC 3.33 L Hgb 9.2 L D Hct 30.6 L MCV 91.8 MCH 27.5 MCHC 30.0 L RDW 15.1 Plt Count 335 MPV 9.2 Neut % (Auto) 91.5 H Lymph % (Auto) 4.2 L [place] % (Auto) 3.7 Eos % (Auto) 0.3 Baso % (Auto) 0.2 Neut # (Auto) 13.5 H Lymph # (Auto) 0.6 L [place] # (Auto) 0.5 Eos # (Auto) 0.1 Baso # (Auto) 0.0 Total Counted 100 Neutrophils % (Manual) 95 H Lymphocytes % (Manual) 5 L Platelet Estimate Normal RBC Morphology Not Reportable Anisocytosis 1+ Ovalocytes 1+ ESR 16 Specimen Source O2 % ABG pH ABG pCO2 ABG pO2 ABG HCO3 ABG Total CO2 ABG O2 Saturation ABG Base Excess Edgar Test Sodium 140 Potassium 4.0 Chloride 110 H Carbon Dioxide 14 L Anion Gap 20.0 H BUN 57 H Creatinine 1.12 H Estimated Creat Clear 29 Estimated GFR 47 L Est GFR ( Amer) 56 L Glucose 182 H D POC Glucose 166 H Lactic Acid Calcium 7.6 L D Total Bilirubin AST ALT Alkaline Phosphatase C-Reactive Protein 1.2 H Total Protein Albumin Globulin Albumin/Globulin Ratio Amylase Lipase Urine Color Urine Appearance Urine pH Ur Specific [place] Urine Protein Urine Glucose (UA) Urine Ketones Urine Blood Urine Nitrate Urine Bilirubin Urine Urobilinogen Ur Leukocyte Esterase Urine RBC Urine WBC Urine Bacteria Stool Occult Blood 10/15/17 10/14/17 10/14/17 00:48 17:25 17:25 WBC 11.8 H RBC 4.43 Hgb 12.1 L Hct 39.1 MCV 88.3 MCH 27.3 MCHC 30.9 L RDW 14.9 Plt Count 418 MPV 8.7 Neut % (Auto) 79.4 Lymph % (Auto) 13.7 [place] % (Auto) 5.6 Eos % (Auto) 0.9 Baso % (Auto) 0.4 Neut # (Auto) 9.4 H Lymph # (Auto) 1.6 [place] # (Auto) 0.7 Eos # (Auto) 0.1 Baso # (Auto) 0.0 Total Counted Neutrophils % (Manual) Lymphocytes % (Manual) Platelet Estimate RBC Morphology Anisocytosis Ovalocytes ESR Specimen Source O2 % ABG pH ABG pCO2 ABG pO2 ABG HCO3 ABG Total CO2 ABG O2 Saturation ABG Base Excess Edgar Test Sodium 136 Potassium 4.3 Chloride 104 Carbon Dioxide 16 L Anion Gap 20.3 H BUN 53 H Creatinine 1.09 H Estimated Creat Clear 32 Estimated GFR 48 L Est GFR ( Amer) 58 L Glucose 115 H POC Glucose Lactic Acid Calcium 8.6 Total Bilirubin 0.5 AST 11 L ALT 11 L Alkaline Phosphatase 60 C-Reactive Protein Total Protein 6.7 Albumin 3.0 L Globulin 3.7 H Albumin/Globulin Ratio 0.8 L Amylase 47 Lipase 308 Urine Color Yellow Urine Appearance Clear Urine pH 7.0 Ur Specific [place] <= 1.005 Urine Protein Negative Urine Glucose (UA) Negative Urine Ketones Trace Urine Blood 2+ Urine Nitrate Negative Urine Bilirubin Negative Urine Urobilinogen 0.2 Ur Leukocyte Esterase Negative Urine RBC 5-10 Urine WBC Occasional Urine Bacteria Trace Stool Occult Blood Positive A DS: Diagnosis - Discharge Diagnosis (1) Acute intestinal ischemic syndrome Status: Acute (2) Renal insufficiency Status: Acute Discharge Medications Discharge Medications: Home Medications Medication Instructions Recorded Confirmed Type No Known Home Medications 09/18/17 10/14/17 History Disposition Disposition: Xfer Short-Term Hosp
--- NOTE | 2017-10-15 03:11 | Swing Bed Reports ---
Discharge/Transfer - Discharge Disposition: Xfer Short-Term Hosp Condition: Critical - Plan of Care Resident has been informed of condition and prognosis?: Yes Mobility Status: bedridden Goal of treatment:: eval by surg and needs higher level of care Rehab Potential: Poor I concur with the most recent H & P: Yes Date of most recent H & P: 10/15/17 Certification: I have reviewed and agree with this resident's plan of care. I certify that post -hospital alf facility services are required to be given on an inpatient basis because of the need for alf care on a continuing basis for the condition(s) for which he/she is receiving inpatient hospital services prior to admission to swing bed. I also certify that the resident meets existing SNF level of care definition.
[2017-10-15 22:51] VITALS: BP 88/42
== END 2017-10-15 03:44 | disposition short-term general hospital (02) ==
LOC: 2ND 17:14 → ER 17:14 → 2ND 21:09
PROVIDERS: ADMIT Emergency Medicine; ATTEND Family Medicine
CPT/HCPCS: 36415; 74177; 80048; 80053; 81001; 82150; 82272; 82803; 82962; 83605; 83690; 85007; 85025; 85651; 86140; 87040; 94760; 96365; 99282; G0328; G0378; J2405; Q9967